=== PATIENT | female | born 1990 | race Two or more races ===

== ENCOUNTER 2024-01-31 08:50 | Outpatient (REF) | payer MEDICAID, SELFPAY ==
[2024-01-31 11:35] LABS: MANUAL DIFF FLAG NO
[2024-01-31 11:40] LABS: Basophils Absolute Auto 0.1 X10*3/uL (0.0-0.2); Basophils Percent Auto 0.9 % (0-2); Eosinophils Absolute Auto 0.2 X10*3/uL (0.0-0.4); Eosinophils Percent Auto 3.3 % (0-4); Estimated Average Glucose 128 mg/dL; Hematocrit 33.3 % (37.0-47.0); Hemoglobin 10.1 g/dl (12.0-16.0); Hemoglobin A1c % 6.1 % (<6.0); Imm Gran Abs Auto 0.01 X10*3/uL (0.00-0.03); Imm Gran Pct Auto 0.2 % (0.0-0.4); Lymphocytes Absolute Auto 2.4 X10*3/uL (1.2-4.9); Lymphocytes Percent Auto 43.8 % (20-40); Mean Corpuscular HGB Conc 30.3 g/dl (31.0-35.0); Mean Corpuscular Hemoglobin 24.5 pg (27.0-33.0); Mean Corpuscular Volume 80.6 fL (80.0-98.0); Mean Platelet Volume 11.3 fL (9.4-12.3); Monocytes Absolute Auto 0.3 X10*3/uL (0.1-1.2); Neutrophils Absolute Auto 2.5 x10*3/uL (2.0-8.3); Neutrophils Percent Auto 45.8 % (45-73); Platelet Count 446 X10*3/uL (160-400); Red Blood Count 4.13 X10*6/uL (4.20-5.50); Red Cell Distribution Width 21.2 % (11.0-16.0); White Blood Count 5.5 X10*3/uL (4.8-10.8)
[2024-01-31 12:40] LABS: Alanine Aminotransferase 20 U/L (0-31); Albumin Level 4.2 g/dL (3.5-5.0); Alkaline Phosphatase 75 U/L (39-117); Anion Gap 15 (12-20); Aspartate Amino Transferase 21 U/L (5-31); Bilirubin Total 0.2 mg/dL (0.0-1.0); Blood Urea Nitrogen 19 mg/dL (9-16); Calcium 9.8 mg/dL (8.4-10.2); Carbon Dioxide 24 mmol/L (22-29); Chloride 105 mmol/L (96-108); Cholesterol 203 mg/dL (<200); Estimated Glomerular Filt Rate > 60; Ferritin 12 ng/mL (10-122); Glucose Random 96 mg/dL (60-115); HDL Cholesterol 72 mg/dL (>40); Iron 22 mcg/dL (30-160); LDL Cholesterol Calculated 123 mg/dL (<100); Percent Iron Saturation 6 % (15-50); Potassium 4.5 mmol/L (3.3-5.1); Sodium 139 mmol/L (135-145); TSH reflex Free T4 0.85 uIU/mL (0.32-4.0); Total Iron Binding Capacity 362 mcg/dL (228-428); Total Protein 7.7 g/dL (6.5-8.0); Triglycerides 40 mg/dL (<150); Unsaturated Iron Binding 340 ug/dL
[2024-02-01 03:55] LABS: HBS Num1 > 1000.00 mIU/mL (0-7.99); HBc Num1 0.11 S/CO (0.00-0.79); HIV AB/AG Nonreactive (Nonreactive); HIV Num 1 0.04 S/CO (0.00-0.99); Hepatitis B Core Antibody Nonreactive (Nonreactive); Hepatitis B Surface Antigen Negative (Negative); ~HepC Num1 0.06 S/CO (0.00-0.79); ~Hepatitis B Surface Antibody REACTIVE (Nonreactive); ~Hepatitis C Antibody Nonreactive (Nonreactive)
== END 2024-01-31 08:51 | disposition home or self-care (01) ==
LOC: HO.HHCL 08:50
PROVIDERS: Visit Provider Nurse Practitioner
DX: E66.09 Other obesity due to excess calories (principal); Z86.2 Personal history of diseases of the blood and blood-forming organs and certain disorders involving the immune mechanism; Z11.3 Encounter for screening for infections with a predominantly sexual mode of transmission; Z68.32 Body mass index [BMI] 32.0-32.9, adult
CPT/HCPCS: 36415; 80053; 80061; 82728; 83036; 83540; 84443; 85025; 86704; 86706; 86803; 87340; 87389

== ENCOUNTER 2024-05-26 16:20 | Outpatient (REF) | payer MEDICAID, SELFPAY ==
--- NOTE | ~2024-05-26 | US_ITS ---
EXAMINATION: US PELVIS CLINICAL INFORMATION: Abnormal uterine bleeding, last menstrual period last month. COMPARISON: None available. TECHNIQUE: Ultrasound of the pelvis is performed using both transabdominal and transvaginal transducers along with Doppler. Transvaginal imaging is performed due to inadequate visualization transabdominally. FINDINGS: The uterus is anteverted, retroflexed and measures 13.0 x 5.5 x 5.4 cm. 1.1 x 0.6 x 1.3 cm posterior uterine mass is characteristic of a fibroid. Small amount of free fluid. Left ovary is unremarkable and measures 2.3 x 1.2 x 1.4 cm, volume 2.0 mL. Right ovary measures 3.9 x 2.4 x 2.5 cm, volume 12.2 mL. 2.3 x 1.3 x 1.5 cm right ovarian cyst has benign features and is likely physiologic. There is no specific indication for additional imaging at this time. Endometrial thickness is 11-13 mm. US/US pelvic and transvaginal IMPRESSION: 1. A 1.3 cm posterior uterine mass is characteristic of a fibroid. 2. Small amount of free fluid. 3. A 2.3 cm right ovarian cyst has benign features and is likely physiologic. There is no specific indication for additional imaging at this time. 4. Endometrial thickness is 11-13 mm. Electronically signed by: Rosangela Alonso MD 06/03/2024 03:47 PM EDT
== END 2024-05-26 16:21 | disposition home or self-care (01) ==
LOC: HO.US 16:20
PROVIDERS: PCP Nurse Practitioner; Visit Provider Nurse Practitioner
DX: N92.0 Excessive and frequent menstruation with regular cycle (principal)
CPT/HCPCS: 76830; 76856

== ENCOUNTER 2024-08-31 16:07 | Outpatient (REF) | payer MEDICAID, SELFPAY ==
[2024-08-31 17:41] LABS: MANUAL DIFF FLAG NO
[2024-08-31 17:55] LABS: Basophils Percent Auto 0.6 % (0-2); Eosinophils Absolute Auto 0.2 X10*3/uL (0.0-0.4); Eosinophils Percent Auto 3.7 % (0-4); Hematocrit 36.5 % (37.0-47.0); Hemoglobin 11.3 g/dl (12.0-16.0); Imm Gran Abs Auto 0.01 X10*3/uL (0.00-0.03); Imm Gran Pct Auto 0.2 % (0.0-0.4); Lymphocytes Absolute Auto 3.1 X10*3/uL (1.2-4.9); Mean Corpuscular Volume 80.8 fL (80.0-98.0); Mean Platelet Volume 11.8 fL (9.4-12.3); Monocytes Absolute Auto 0.3 X10*3/uL (0.1-1.2); Monocytes Percent Auto 5.2 % (2-11); Neutrophils Absolute Auto 2.5 x10*3/uL (2.0-8.3); Neutrophils Percent Auto 40.3 % (45-73); Platelet Count 420 X10*3/uL (160-400); Red Blood Count 4.52 X10*6/uL (4.20-5.50); Red Cell Distribution Width 19.9 % (11.0-16.0); White Blood Count 6.2 X10*3/uL (4.8-10.8)
[2024-08-31 18:25] LABS: Iron 95 mcg/dL (30-160); Percent Iron Saturation 24 % (15-50); Total Iron Binding Capacity 393 mcg/dL (228-428); Unsaturated Iron Binding 298 ug/dL
== END 2024-08-31 16:08 | disposition home or self-care (01) ==
LOC: HO.HHCL 16:07
PROVIDERS: Visit Provider Nurse Practitioner
DX: D50.9 Iron deficiency anemia, unspecified (principal)
CPT/HCPCS: 36415; 83540; 85025

== ENCOUNTER 2025-07-16 09:13 | Outpatient (REF) | payer MEDICAID, SELFPAY ==
--- OUTSIDE RECORDS SUMMARY | 2025-07-16 10:07 | XMS_ITS | Encounter Summary ---
Author Organization [employer] Address [address] [place] [address] Care Team Providers Care Interlocking Machine Operator Name Role Phone Emma Posada NP Primary Care Provider [phone] Reason for Visit * Reason Onset Date Comments Med Refill 10/20/2024 Encounter Details Date Type Department Care Team (Late st Contact Info) Description 10/20/2024 Telephone [facility] MEDICINE [address] [place] [address] Emma Posada NP [address] [place], [place] [phone] Med Refill Social History Tobacco Use Types Packs/Day Years Used Date Smoking Tobacco: Never Smokeless Tobacco: Never Alcohol Use Standard Drinks/Week Comments Never 0 (1 standard drink = 0.6 oz pur e alcohol) Alcohol Answer Date Recorded How often do you have a drink containing alcohol ? 0 08/31/2024 How many drinks containing a lcohol do you have on a typical day when you are drinking? 0 08/31/2024 How often do you have six or more drinks on one occasion? 0 08/31/2024 Depression Answer Date Recorded Patient Health Questionnaire-9 Score 0 01/29/2024 Patient Health Questionnaire-9 Score 0 01/29/2024 Last PHQ-9: Questionnaire Data Not on file 0 01/29/2024 Housing Stability Answer Date Recorded What is your housing situation today? I have mamta elias 01/22/[address] you li ve. Do you have problems with any of the following? None of the above 01/22/2024 Food Insecurity Answer Date Recorded Within the past 12 months, y ou worried that your food would run out before you got money to buy more: Never True 01/22/2024 Within the past 12 months,th e food you bought just didn't last and you didn't have enough money to get more: Never True Transportation Answer Date Recorded In the past 12 months, has l ack of transportation kept you from medical appts, meetings, work or from getting things needed for daily living? No 01/22/2024 Utilities Answer Date Recorded In the past 12 months, has t he electric, gas, oil or water company threatened to shut off services in your home? I am not sure 01/29/2024 Depression Answer Date Recorded Patient Health Questionnaire-2 Score 0 08/31/2024 Comments Unknown Sex and Gender Information Value Date Recorded Sex Assigned at Female 05/21/2023 11:06 AM EDT Legal Sex Female 11:05 AM EDT Gender Identity Female 05/21/2023 11:06 AM EDT Sexual Orientation Don't know 05/21/2023 11 :06 AM EDT documented as of this encounter Miscellaneous Notes * Telephone Encounter - Ping Willis LPN - 10/20/2024 10:46 AM EST Please review request as Patient has [facility] * Telephone Encounter - Mary Dennis - 10/20/2024 10:41 AM EST TC from pt requesting medication refill. Medications needing refill : Semaglutide-Weight Management 0.25 MG/0.5ML solution auto-injector To be sent to: [facility] documented in this encounter Plan of Treatment Upcoming Encounters Date Type Department Care Team (Late st Contact Info) Description 08/18/2025 10:45 AM EST Office Visit [facility] [address] [place] [address] Emma Posada NP [address] [place] [address] 11/11/2025 2:30 PM EST Office Visit [facility] OPTOM[facility] [address] [place] [address] Srea Graff OD [address] [place] [address] documented as of this encounter Visit Diagnoses Not on filedocumented in this encounter Additional Health Concerns Assessment Noted Time PHQ-9 Depression Total Score: 0 01/29/20 11:08 AM EDT documented as of this encounter Care Teams Interlocking Machine Operator Relationship Specialty Start Date End Date Emma Posada NP [address] [place] [id number] PCP - General Family Medicine 01/29/24 documented as of this encounter
--- OUTSIDE RECORDS SUMMARY | 2025-07-16 10:07 | XMS_ITS | Encounter Summary ---
Author Organization [employer] Address [address] [place] [address] Care Team Providers Care Program Director Scouting Name Role Phone Emma Posada NP Primary Care Provider Encounter Details Date Type Department Care Team (Late st Contact Info) Description 09/15/2024 Telephone [facility] MEDICINE [address] [place] [address] Emma Posada NP [address] [place] [address] Social History Tobacco Use Types Packs/Day Years [...] your housing situation today? I have mamta griffin 01/22/[address] you li [...] AM EDT documented as of this encounter Plan of Treatment Upcoming Encounters Date Type Department Care Team (Late st Contact Info) Description 08/18/2025 10:45 AM EST Office Visit [facility] MEDICINE [address] [place] [address] Emma Posada NP [address] [place] [address] 11/11/2025 2:30 PM EST Office Visit [facility] OPTOMETRY [address] [place] [address] TarSera mckinnon, OD [address] [place] [address] documented as of this encounter Visit Diagnoses Not on filedocumented in this encounter Additional Health Concerns Assessment Noted Time PHQ-9 Depression Total Score: 0 01/29/20 11:08 AM EDT documented as of this encounter Care Teams Program Director Scouting Relationship Specialty Start Date End Date Emma Posada NP [address] [place] [address] PCP - General Family Medicine 01/29/24 documented as of this encounter
--- OUTSIDE RECORDS SUMMARY | 2025-07-16 10:07 | XMS_ITS | Encounter Summary ---
Author Organization [employer] Address [address] [place] [address] Care Team Providers Care Retail Coverage Merchandiser Name Role Phone Emma Posada NP Primary Care Provider [phone] Reason for Visit * Reason Comments Med Change Request Encounter Details Date Type Department Care Team (Late st Contact Info) Description 05/29/2024 Refill [facility] MED & PEDS [address] [place] [address] Emma Posada NP [address] [place], [place] [phone] Iron deficiency anemia, unspecified iron deficiency anemia type Social History Tobacco Use Types Packs/Day Years Used Date Smoking Tobacco: Never Smokeless Tobacco: Never Alcohol Use Standard Drinks/Week Comments Never 0 (1 standard drink = 0.6 oz pur e alcohol) Depression Answer Date Recorded Patient Health Questionnaire-9 [...] Date Recorded Patient Health Questionnaire-2 Score 0 01/29/2024 Comments Unknown Sex and Gender Information Value [...] Description 08/18/2025 10:45 AM EST Office Visit [facility] MEDICINE [address] [place] [address] Emma Posada NP [address] [place] [address] 11/11/2025 2:30 PM EST Office Visit [facility] OPTOMETRY [address] [place] [address] Tarka, Sera, OD [address] [place] [address] documented as of this encounter Visit Diagnoses Diagnosis Iron deficiency anemia, unspecified iron deficiency anemia type documented in this encounter Additional Health Concerns Assessment Noted Time PHQ-9 Depression Total Score: 0 01/29/20 11:08 AM EDT documented as of this encounter Care Teams Retail Coverage Merchandiser Relationship Specialty Start Date End Date Emma Posada NP [address] [place] [address] PCP - General Family Medicine 01/29/24 documented as of this encounter
--- OUTSIDE RECORDS SUMMARY | 2025-07-16 10:07 | XMS_ITS | Encounter Summary ---
Author Organization [employer] Address [address] [place] [address] Care Team Providers Care Personnel Security Specialist Name Role Phone Emma Posada NP Primary Care Provider [phone] Reason for Visit * Reason Comments Med Change Request Encounter Details Date Type Department Care Team (Late st Contact Info) Description 05/29/2024 Refill [facility] MED & PEDS [address] [place] [address] Emma Posada NP [address] [place], [place] [phone] Iron deficiency anemia, unspecified iron deficiency anemia [...] Description 08/18/2025 10:45 AM EST Office Visit [facility] MEDICINE [address] [place] [address] Emma Posada NP [address] [place] [address] 11/11/2025 2:30 PM EST Office Visit [facility] OPTOMETRY [address] [place] [address] Tarka, Sera, OD [address] [place] [address] documented as of this encounter Visit Diagnoses Diagnosis Iron deficiency anemia, unspecified iron deficiency anemia type documented in this encounter Additional Health Concerns Assessment Noted Time PHQ-9 Depression Total Score: 0 01/29/20 11:08 AM EDT documented as of this encounter Care Teams Personnel Security Specialist Relationship Specialty Start Date End Date Emma Posada NP [address] [place] [address] PCP - General Family Medicine 01/29/24 documented as of this encounter
--- OUTSIDE RECORDS SUMMARY | 2025-07-16 10:07 | XMS_ITS ---
Author Name [facility] Organization Unknown Encounters Encounter Type Encounter Reason Primary Diagnosis Location Date Ambulatory [facility] le ft lower [facility] Care Team Organization Name Specialty Phone Email Start Date End Da te [facility] [place] 03/2025 [facility] 08/01/2022 05/18/2024 [facility] NO PCP Primary Care 04/17/2022 04/17/2022 [facility] PCP,No Primary Care 04/17/2022
--- OUTSIDE RECORDS SUMMARY | 2025-07-16 10:07 | XMS_ITS | Encounter Summary ---
Author Organization [employer] Address [address] [place] [address] Care Team Providers Care Woven Blind Loom Tender Name Role Phone Emma Posada NP Primary Care Provider [phone] Reason for Visit * Reason Comments Med Refill Encounter Details Date Type Department Care Team (Late st Contact Info) Description 10/20/2024 Refill [facility] MEDICINE [address] [place], [place] [phone] Emma Posada NP [address] [place], [place] [phone] Obesity (BMI 30-39.9) Social History Tobacco Use Types Packs/Day Years [...] Description 08/18/2025 10:45 AM EST Office Visit [facility] MEDICINE [address] [place] [address] Emma Posada NP [address] [place] [address] 11/11/2025 2:30 PM EST Office Visit [facility] OPTOMETRY [address] [place] [address] Tarka, Sera, OD [address] [place] [address] documented as of this encounter Visit Diagnoses Diagnosis Obesity (BMI 30-39.9) documented in this encounter Additional Health Concerns Assessment Noted Time PHQ-9 Depression Total Score: 0 01/29/20 11:08 AM EDT documented as of this encounter Care Teams Woven Blind Loom Tender Relationship Specialty Start Date End Date Emma Posada NP [address] [place] [address] PCP - General Family Medicine 01/29/24 documented as of this encounter
--- OUTSIDE RECORDS SUMMARY | 2025-07-16 10:08 | XMS_ITS | Clinical Summary ---
Author Organization [employer] Address [address] [facility] 7t [place] [address] Care Team Providers Care Industrial Waste Treatment Technician Name Role Phone Emma Posada NP Primary Care Provider [phone] Allergies No known active allergies Medications Blood Pressure Monitor kitIndications :Routine health maintenance 1 kit Once per day. Call the clinic with readings >130/80 1 kit 024 Active ibuprofen 800 MG tabletIndicati ons:Menorrhagi a with regular cycle Take 1 tablet TID with food during menstrual cycle 90 tablet 024 Active Tirzepatide-We ight Management (Zepbound) 5 MG/0.5ML solution auto-injectorI ndications:Cla ss 1 obesity due to excess calories without serious comorbidity with body mass index (BMI) of 32.0 to 32.9 in adult INJECT ONE PEN (=5MG) SUBCUTANEOUSLY ONCE A WEEK DIRECTED 2 mL 025 Active Ascorbic Acid (vitamin C) 250 MG tabletIndicati ons:Iron deficiency anemia, unspecified iron deficiency anemia type TAKE 1 TABLET BY MOUTH EVERY OTHER DAY WITH IRON 45 tablet 1 025 Active ferrous gluconate (Fergon) 324 (38 Fe) MG tabletIndicati ons:Iron deficiency anemia, unspecified iron deficiency anemia type TAKE 1 TABLET BY MOUTH EVERY OTHER DAY WITH vitamin c 45 tablet 1 025 Active ferrous gluconate (Fergon) 324 (38 Fe) MG tabletIndicati ons:Iron deficiency anemia, unspecified iron deficiency anemia type TAKE 1 TABLET BY MOUTH EVERY OTHER DAY WITH VITAMIN C 45 tablet 2 024 2024 Discontinued Ascorbic Acid (vitamin C) 250 MG tabletIndicati ons:Iron deficiency anemia, unspecified iron deficiency anemia type TAKE 1 TABLET BY MOUTH EVERY OTHER DAY WITH IRON 45 tablet 2 024 2024 Discontinued Active Problems Problem Noted Date Diagnosed Date Obesity (BMI 30-39.9) 08/31/2024 Menorrhagia with regular cycle 05/19/2024 Assessment & Plan (05/19/2024 2:21 PM EDT): -normal thyroid function (0.85 on 01/2024) -orders placed for transvaginal and pelvic US to evaluate for structural abnormalities -trial ibuprofen 800 mg TID during menses to help slow down bleeding -patient decline STI testing today -will discuss obtaining PT, PTT levels and testing for von Willebrand at next visit -will discuss possible use of IUD for fci management at next visit -follow-up after US completed Iron deficiency anemia 05/19/2024 Assessment & Plan (05/19/2024 1:48 PM EDT): -start ferrous gluconate every other day with vitamin C -advised to increase dietary sources of iron -will work up menorrhea as the potential cause Prediabetes 05/19/2024 Assessment & Plan (05/19/2024 2:21 PM EDT): -A1c 6.1% -reviewed dietary and physical activity requirements -declined referral to see superintendent horticulture -consider initiation of GLP-1 to assist with weight loss at next visit Class 1 obesity due to exces s calories without serious comorbidity with body mass index (BMI) of 32.0 to 32.9 in adult 01/29/2024 Assessment & Plan (01/29/2024 12:04 PM EDT): -Healthy diet and exercise teaching completed: Eat a variety of fruit and vegetables, whole grains such as whole-wheat flour, bulgur (cracked wheat), oatmeal, and brown rice. Intake protein from beans, nuts, fish, and lean meats. Eat low-fat or fat- free dairy products. Limit highly processed foods such as hot dogs, sandwich meat, etc. Engage in minimum of 150 min of moderate intensity exercise weekly -labs ordered to evaluate for secondary causes of obesity Routine screening for STI (sexually transmitted infection) 01/29/2024 Assessment & Plan (01/29/2024 12:07 PM EDT): -patient agreeable to screening for hepatitis B&C and HIV Routine health maintenance 01/29/2024 Assessment & Plan (01/29/2024 12:18 PM EDT): -moderate cardiovascular risk based on BMI reading -mildly elevated BP. Will continue to monitor -mental health screenings negative -healthy social behaviors encouraged -anticipatory guidance reviewed: diet, exercise -Mammogram: not due till age 40. -Cervical cancer screening: will attempt to obtain last pap results from [facility] [place] -Colonoscopy: not due till 40 -Dexa Scan: not due till age 65. No reported risk history -Hepatitis C Screen: ordered today -HIV Screen: ordered today -Immunizations: discuss at next visit -follow-up 6 months or sooner as needed Resolved Problems Problem Noted Date Diagnosed Date Resolved Date Hx of iron deficiency anemia 01/29/2024 05/19/2024 Assessment & Plan (01/29/2024 12:06 PM EDT): -patient reports history of anemia -CBC and iron panel ordered -will treat accordingly pending lab results Encounters Date Type Department Care Team Description 07/09/2025 3:15 PM EDT Office Visit [facility] MEDICINE [address] [place] [phone] Emma Posada NP Class 1 obesity due to excess calories without serious comorbidity with body mass index (BMI) of 32.0 to 32.9 in adult (Primary Dx); Dietary counseling; Exercise counseling; Iron deficiency anemia, unspecified iron deficiency anemia type; Prediabetes; History of uterine fibroid; Routine health maintenance; Encounter for immunization 07/09/2025 Travel 07/08/2025 Telephone [facility] MEDICINE [address] [place] [phone] Hammad Abbasi [place] CHART PREP 06/15/2025 Refill [facility] MEDICINE [address] [place] [phone] Emma oPsada NP Iron deficiency anemia, unspecified iron deficiency anemia type 06/04/2025 Refill [facility] MEDICINE [address] [place] [phone] Emma Posada NP Class 1 obesity due to excess calories without serious comorbidity with body mass index (BMI) of 32.0 to 32.9 in adult from Last 3 Months Immunizations Immunization Administration Dates Next Due Influenza, seasonal, injectable, preservative fr ee 07/09/2025 Tdap 08/31/2024 Family History Medical History Relation Name Comments Hyperlipidemia Mother Hypertension Mother pacemaker Mother Breast cancer Mother's Sister Relation Name Status Comments Mother Mother's Sister Social History Tobacco Use Types Packs/Day Years Used Date Smoking Tobacco: Never Smokeless Tobacco: Never Tobacco Cessation:Counseling Given: Not Answered Alcohol Use Standard Drinks/Week Comments Never 0 [...] housing situation today? I have mamta griffin 07/09/[address] you li ve. Do you have problems with any of the following? None of the above 07/09/2025 Food Insecurity Answer Date Recorded Within the past 12 months, y ou worried that your food would run out before you got money to buy more: Never True 07/09/2025 Within the past 12 months,th e food you bought just didn't last and you didn't have enough money to get more: Never True 06/2025 Transportation Answer Date Recorded In the past 12 months, has l ack of transportation kept you from medical appts, meetings, work or from getting things needed for daily living? No 07/09/2025 Utilities Answer Date Recorded In the past 12 months, has t he electric, gas, oil or water company threatened to shut off services in your home? No 07/09/2025 Depression Answer Date Recorded Patient Health Questionnaire-2 Score 0 08/31/2024 Internet Access Answer Date Recorded Internet Access Q1 Yes 07/09/2025 Internet Access Q2 Not on file 07/09/2025 Comments Unknown Sex and Gender Information Value Date Recorded Sex Assigned at Female 05/21/2023 11:06 AM EDT Legal Sex Female 11:05 AM EDT Gender Identity Female 05/21/2023 11:06 AM EDT Sexual Orientation Don't know 05/21/2023 11 :06 AM EDT Last Filed Vital Signs Vital Sign Reading Time Taken Comments Blood Pressure 110/82 07/09/2025 3:30 PM EDT Pulse 68 07/09/2025 3:30 PM EDT Temperature 37.2 C (99 F) 07/09/2025 3:30 PM EDT Respiratory Rate 17 07/09/2025 3:30 PM EDT Oxygen Saturation 99% 07/09/2025 3:30 PM EDT Inhaled Oxygen Concentration - - Weight 92.4 kg (203 lb 12.8 oz) 07/09/2025 3:30 PM EDT Height 170.2 cm (5' 7 ) 07/09/2025 3:30 PM EDT Body Mass Index 31.92 07/09/2025 3:30 PM EDT Plan of Treatment Upcoming Encounters Date Type Department Care Team (Late st Contact Info) Description 08/18/2025 10:45 AM EST Office Visit [facility] MEDICINE [address] [place] [address] Emma Posada NP [address] [place] [address] 11/11/2025 2:30 PM EST Office Visit [facility] OPTOMETRY [address] [place] [address] Sera Graff, OD [address] [place] [address] Health Maintenance Due Date Last Done Comments Family Planning (PISQ) 01/09/2003 HPV Vaccines (1 - 3-dose series) 01/09/2003 Hepatitis B Vaccines (1 of 3 - 19+ 3-dose series) 01/09/2007 Pap Smear 01/09/2009 Cervical Cancer Screening 01/09/2018 HPV/Cotest 01/09/2018 Diabetes: Hemoglobin A1C 01/30/2025 01/31/2024 COVID-19 Vaccine (1 - 2023-2 5 season) 2025 Alcohol/Substance Use Screening 08/31/2025 08/31/2024 Depression Screening 08/31/2025 08/31/2024, 01/29/2024 Tobacco Screening 08/31/2025 08/31/2024 Disability Screening 07/09/2026 07/09/2025 SDOH Screening 07/09/2026 07/09/2025 Lipid Panel 01/30/2029 01/31/2024 DTaP/Tdap/Td Vaccines (2 - T d or Tdap) 08/31/2034 08/31/2024 Zoster Vaccines (1 of 2) 01/09/2038 RSV Patients and Patients Aged 60 years or older (1 - 1-dose 75+ series) 01/09/2063 HIV Screening Completed 01/31/2024 Hepatitis C Screening Completed 01/31/2024 Influenza Vaccine Completed 07/09/2025 HIB Vaccines Aged Out No longer eligi ble based on patient's age to complete this topic Hepatitis A Vaccines Aged Out No long er eligible based on patient's age to complete this topic IPV Vaccines Aged Out No longer eligi ble based on patient's age to complete this topic Meningococcal B Vaccine Aged Out No l onger eligible based on patient's age to complete this topic Meningococcal Vaccine Aged Out No lauren leisa eligible based on patient's age to complete this topic Pneumococcal Vaccine: Pediatrics (0 to 5 Years) and At-Risk Patients (6 to 49) Years Aged Out No longer eligible b ased on patient's age to complete this topic RSV under 20 months Aged Out No longe r eligible based on patient's age to complete this topic Rotavirus Vaccines Aged Out No longer eligible based on patient's age to complete this topic Procedures Procedure Name Priority Date/Time Associated Diagnosis Comments HEPATITIS C AB W/REFL TO HCV RNA, QN, PCR Routine 01/31/2024 8:57 AM EDT Routine screening for STI (sexually transmitted infection) HIV 1/2 ANTIGEN/ANTIBODY, FOURTH GENERATION W/RFL Routine 01/31/2024 8:57 AM EDT Routine screening for STI (sexually transmitted infection) HEMOGLOBIN A1C Routine 01/31/2024 8:57 AM EDT Class 1 obesity due to excess calories without serious comorbidity with body mass index (BMI) of 32.0 to 32.9 in adult LIPID PANEL, STANDARD Routine 01/31/2024 8:57 AM EDT Class 1 obesity due to excess calories without serious comorbidity with body mass index (BMI) of 32.0 to 32.9 in adult from Last 3 Months or Most Recently Relevant to Health Maintenance Results * Hepatitis C Antibody with Reflex to HCV, RNA, Quantitative, Real-Time PCR (01/31/2024 8:57 AM EDT) Hepatitis C Antibody Nonreactive Nonreactive [facility] Comment:Antibodies to HCV no t detected; does not exclude early acuteHCV infection. Blood Venous blood specimen / Unknown 01/31/2024 8:57 AM EDT 01/31/2024 11:28 AM EDT Emma Posada CERAMIC SAW TENDER LAB BLOOD ORDERABLES Final Resu lt [facility] [address] [place] [phone] * HIV-1/2 Antigen and Antibodies, Fourth Generation, with Reflexes (01/31/2024 8:57 AM EDT) HIV AB/AG Nonreactive Nonreactive [facility] Comment:HIV-1 p24 Ag and/or HIV-1/HIV-2 Ab not detected.A test result that is nonreactive does not exclude thepossibility of exposure to or infection with HIV-1 and/orHIV-2. Nonreactive results in this assay for individualswith prior exposure to HIV-1 and/or HIV-2 may be due toantigen and antibody levels that are below the limit ofdetection of this assay.The Speek HIV Ag/Ab Combo assay result andsupplemental assay results should be interpreted inconjunction with the patient's clinical presentation,history and other laboratory results. If the results areinconsistent with clinical evidence, additional testing issuggested to confirm the result. Blood Venous blood specimen / Unknown 01/31/2024 8:57 AM EDT 01/31/2024 11:28 AM EDT [facility] Final Resu lt Performing Organization Address [facility] Co de Phone Number [facility] [address] [place] [address] [phone] * (ABNORMAL) Hemoglobin A1c (01/31/2024 8:57 AM EDT) Hemoglobin A1c 6.1(H) <6.0 % [facility] Comment:Hemoglobin A1C Refer ence Range Adults: 4.8 - 6.0 % Non diabetic: < 6.0 % Goal: < 7.0 %Additional Action Suggested: > 8.0 %Note: Hemoglobin A1c results are invalid for patients with abnormal amounts of HbF. Blood transfusions may impact the HbA1c concentration in the patient sample. Estimated Average Glucose 128 mg/dL [facility] Comment:eAG = Estimated ave rage glucose which is %A1C expressed asaverage glucose, using the formula of the S6V-PbibaezFraredn Glucose study (ADAG), Diabetes Care, Vol.31,#8,2007 Blood Venous blood specimen / Unknown 01/31/2024 8:57 AM EDT 01/31/2024 11:26 AM EDT [facility] LAB BLOOD ORDERABLES Final Resu lt Performing Organization Address [facility] Co de Phone Number [facility] [address] [place] [address] [phone] * (ABNORMAL) Lipid Panel, Standard (01/31/2024 8:57 AM EDT) Triglycerides 40 <150 mg/dL [facility] Comment:Desirable Triglyceri de: less than 150 mg/dLBorderline High Triglyceride 150-199 mg/dLHigh Triglyceride: 200-499 mg/dLVery High Triglyceride: greater than or equal to 5OO mg/dL Cholesterol 203(H) <200 mg/dL [facility] Comment:Desirable Cholestero l: less than 200 mg/dLBorderline High Cholesterol: 200-239 mg/dLHigh Cholesterol: greater than 239 mg/dL LDL Cholesterol Calculated 123(H) <100 mg/dL [facility] Comment:Desirable LDL: less than 100 mg/dLNear Optimal/Above Optimal LDL: 110- 129 mg/dLBorderline High LDL: 130-159 mg/dLHigh LDL: 160-189 mg/dLVery High LDL: greater than or equal to 190 mg/dL HDL Cholesterol 72 >40 mg/dL [facility] Comment:Desirable HDL: great er than 40 mg/dL Note: This HDL assay may give artificially low results in patients with liver disease. Blood Venous blood specimen / Unknown 01/31/2024 8:57 AM EDT 01/31/2024 11:28 AM EDT Emma Posada NP LAB BLOOD ORDERABLES Final Resu lt [facility] [address] [place] [phone] from Last 3 Months or Most Recently Relevant to Health Maintenance Insurance [facility] C3 Care Teams Industrial Waste Treatment Technician Relationship Specialty Start Date End Date Emma Posada NP [address] [place] [address] PCP - General Family Medicine 01/29/24
--- OUTSIDE RECORDS SUMMARY | 2025-07-16 10:08 | XMS_ITS | Encounter Summary ---
Author Organization [employer] Address [address] [place] [address] [address] [place] [address] Care Team Providers Care Retail Furniture Sales Name Role Phone Emma Posada GOLF BALL MARKER Primary Care Provider [phone] Reason for Visit * Reason Onset Date Comments new Patient 05/21/2023 Encounter Details Date Type Department Care Team (Late st Contact Info) Description 05/21/2023 Telephone [facility] MEDICINE [address] [place] [phone] Marcelo Long MD [address] [place] [address] new Patient Social History Tobacco Use Types Packs/Day Years Used Date Smoking Tobacco: Never Assessed Comments Unknown Sex and Gender Information Value Date Recorded Sex Assigned at Female 05/21/2023 11:06 AM EDT Legal Sex Female 11:05 AM EDT Gender Identity Female 05/21/2023 11:06 AM EDT Sexual Orientation Don't know 05/21/2023 11 :06 AM EDT documented as of this encounter Miscellaneous Notes * Telephone Encounter - Karlie Stahl - 05/21/2023 11:11 AM EDT Pt has been transfer over to wait list for GOLF BALL MARKER. EFFECTIVE SINCE 05/21/2023 documented in this encounter Plan of Treatment Upcoming Encounters Date Type Department Care Team (Late st Contact Info) Description 08/18/2025 10:45 AM EST Office Visit [facility] MEDICINE [address] [place] [phone] Emma Posada NP [address] [place] [address] 11/11/2025 2:30 PM EST Office Visit [facility] OPTOMETRY [address] [place], [place] [phone] Sera Graff, OD [address] [place], [place] [phone] documented as of this encounter Visit Diagnoses Not on filedocumented in this encounter Care Teams Retail Furniture Sales Relationship Specialty Start Date End Date Emma Posada NP [address] [place] [address] [phone] PCP - General Family Medicine 01/29/24 documented as of this encounter
--- OUTSIDE RECORDS SUMMARY | 2025-07-16 10:08 | XMS_ITS | Encounter Summary ---
Author Organization [employer] Address [address] [facility] [address] [place] [address] Care Team Providers Care Engraver Hand Hard Metals Name Role Phone Emma Posada NP Primary Care Provider [phone] Reason for Visit * Reason Comments Med Refill Encounter Details Date Type Department Care Team (Late st Contact Info) Description 03/30/[address] [facility] MEDICINE [address] [place], [place] [phone] Emma Posada NP [address] [place], [place] [phone] Class 1 obesity due to excess calories without serious comorbidity with body mass index (BMI) of 32.0 to 32.9 in adult Social History Tobacco Use Types Packs/Day Years [...] Description 08/18/2025 10:45 AM EST Office Visit [facility] MEDICINE [address] [place] [address] Emma Posada NP [address] [place] [address] 11/11/2025 2:30 PM EST Office Visit [facility] OPTOMETRY [address] [place] [address] TarkaSera, OD [address] [place] [address] documented as of this encounter Visit Diagnoses Diagnosis Class 1 obesity due to excess calories without serious comorbidity with body mass index (BMI) of 32.0 to 32.9 in adult documented in this encounter Additional Health Concerns Assessment Noted Time PHQ-9 Depression Total Score: 0 01/29/20 24 11:08 AM EDT documented as of this encounter Care Teams Engraver Hand Hard Metals Relationship Specialty Start Date End Date Emma Posada NP [address] [place] [address] PCP - General Family Medicine 01/29/24 documented as of this encounter
[2025-07-16 11:26] LABS: MANUAL DIFF FLAG NO
[2025-07-16 11:39] LABS: Hematocrit 36.4 % (37.0-47.0); Hemoglobin 11.3 g/dl (12.0-16.0); Imm Gran Abs Auto 0.01 X10*3/uL (0.00-0.03); Imm Gran Pct Auto 0.2 % (0.0-0.4); Lymphocytes Absolute Auto 2.2 X10*3/uL (1.2-4.9); Mean Corpuscular HGB Conc 31.0 g/dl (31.0-35.0); Mean Corpuscular Hemoglobin 25.5 pg (27.0-33.0); Mean Corpuscular Volume 82.2 fL (80.0-98.0); NRBC Abs Auto 0.000 X10*3/uL (0.0-0.012); NRBC Pct Auto 0.0 /100WBC (0.0-0.2); Platelet Count 348 X10*3/uL (160-400); Red Blood Count 4.43 X10*6/uL (4.20-5.50); White Blood Count 5.6 X10*3/uL (4.8-10.8)
[2025-07-16 14:01] LABS: Anion Gap 10 (12-20); Blood Urea Nitrogen 16 mg/dL (9-16); Calcium 9.3 mg/dL (8.4-10.2); Carbon Dioxide 28 mmol/L (22-29); Chloride 105 mmol/L (96-108); Cholesterol 220 mg/dL (<200); Estimated Glomerular Filt Rate > 60; HDL Cholesterol 64 mg/dL (>40); Iron 78 mcg/dL (30-160); Percent Iron Saturation 23 % (15-50); Potassium 4.1 mmol/L (3.3-5.1); Sodium 139 mmol/L (135-145); Total Iron Binding Capacity 337 mcg/dL (228-428); Triglycerides 48 mg/dL (<150); Unsaturated Iron Binding 259 ug/dL
[2025-07-16 14:25] LABS: Ferritin 29 ng/mL (10-122)
== END 2025-07-16 09:14 | disposition home or self-care (01) ==
LOC: HO.HHCL 09:13
PROVIDERS: PCP Nurse Practitioner; Visit Provider Nurse Practitioner
DX: E66.811 Obesity, class 1 (principal); R73.03 Prediabetes; D50.9 Iron deficiency anemia, unspecified; Z68.32 Body mass index [BMI] 32.0-32.9, adult
CPT/HCPCS: 36415; 80048; 80061; 82728; 83036; 83540; 85025

== ENCOUNTER 2025-09-10 13:27 | Outpatient (REF) | payer MEDICAID, SELFPAY ==
--- NOTE | ~2025-09-10 | US_ITS ---
EXAMINATION: US PELVIS CLINICAL INFORMATION: Uterine fibroids. LMP: No apparent 2024. COMPARISON: January 25, 2024. TECHNIQUE: Ultrasound of the pelvis is performed using both transabdominal and transvaginal transducers along with Doppler. Transvaginal imaging is performed due to inadequate visualization transabdominally. FINDINGS: Uterus: The uterus is anteverted in retroversion flexion and measures 15 x 6 x 7 cm. Volume: 295 cc. The double wall endometrial thickness is 12 mm. There is a 2.8 cm heterogeneous predominantly hypoechoic lesion in the anterior aspect of the body of the myometrium. The cervix is closed with the small nabothian cysts. Adnexa: The ovaries are identified with flow on color Doppler interrogation.. No solid or cystic lesion. No free fluid in the cul-de-sac. Right ovary measures 4 x 2 x 3 cm. Volume: 11 cc. Left ovary measures 3 x 2 x 3 cm. Volume: 4 cc. US/US pelvic and transvaginal IMPRESSION: 2.8 cm uterine fibroid. Slightly larger since prior exam. No ovarian torsion. No gross solid or cystic lesion, ovaries. Electronically signed by: Sanchez Quintana MD 09/10/2025 02:52 PM EST
--- OUTSIDE RECORDS SUMMARY | 2025-09-10 18:57 | XMS_ITS | Encounter Summary ---
Author Organization [employer] Address [address] [facility] [place] [address] Care Team Providers Care Knockout Machine Operator Name Role Phone Emma Posada NP Primary Care Provider [phone] Reason for Visit * Reason Comments Med Refill Encounter Details Date Type Department Care Team (Late st Contact Info) Description 10/20/2024 Refill [facility] MEDICINE [address] [place], [place] [phone] Emma Posada NP [address] [place], [place] [phone] Obesity (BMI 30-39.9) Social History Tobacco Use [...] Care Team (Late st Contact Info) Description 09/17/2025 11:30 AM EST Office Visit [facility] MEDICINE [address] [place] [address] Emma Posada NP [address] [place] [address] 11/05/2025 3:00 PM EST Nutrition [facility] DIABETES/NUTRITION [address] [place] [address] Michelle Hyde, RD [address] [place] [address] 11/11/2025 2:30 PM EST Office Visit [facility] OPTOMETRY [address] [place] [address] Tarka, Sera, OD [address] [place] [address] documented as of this encounter Visit Diagnoses Diagnosis Obesity (BMI 30-39.9) documented in this encounter Additional Health Concerns Assessment Noted Time PHQ-9 Depression Total Score: 0 01/29/20 11:08 AM EDT documented as of this encounter Care Teams Knockout Machine Operator Relationship Specialty Start Date End Date Emma Posada NP [address] [place] [address] PCP - General Family Medicine 01/29/24 documented as of this encounter
--- OUTSIDE RECORDS SUMMARY | 2025-09-10 18:57 | XMS_ITS | Encounter Summary ---
Author Organization [employer] Address [address] [place] [address] [address] [place] [address] Care Team Providers Care Bead Forming Machine Operator Name Role Phone Emma Posada TEAM LEADER Primary Care Provider [phone] Reason for Visit * Reason Onset Date Comments new Patient 05/21/2023 Encounter Details Date Type Department Care Team (Late st Contact Info) Description 05/21/2023 Telephone [facility] MEDICINE [address] [place] [phone] Marcelo Long MD [address] [place] [address] new Patient Social History Tobacco Use Types [...] been transfer over to wait list for TEAM LEADER. EFFECTIVE SINCE 05/21/2023 documented in this encounter Plan of Treatment Upcoming Encounters Date Type Department Care Team (Late st Contact Info) Description 09/17/2025 11:30 AM EST Office Visit [facility] MEDICINE [address] [place] [phone] Emma Posada NP [address] [place] [address] 11/05/2025 3:00 PM EST Nutrition [facility] DIABETES/NUTRITION [address] [place], [place] [phone] Michelle Hyde, JOSE [address] [place] [address] 11/11/2025 2:30 PM EST Office Visit [facility] OPTOMETRY [address] [place], [place] [phone] Sera Graff, OD [address] [place] [address] documented as of this encounter Visit Diagnoses Not on filedocumented in this encounter Care Teams Bead Forming Machine Operator Relationship Specialty Start Date End Date Emma Posada NP [address] [place] [address] PCP - General Family Medicine 01/29/24 documented as of this encounter
--- OUTSIDE RECORDS SUMMARY | 2025-09-10 18:57 | XMS_ITS | Clinical Summary ---
Author Organization [employer] Address [address] [facility] 7[address] [place] [address] Care Team Providers Care Motor Vehicle Inspector Name Role Phone Emma Posada NP Primary Care Provider [phone] Allergies No known active allergies Medications Blood Pressure Monitor kitIndications: Routine health maintenance 1 kit Once per day. Call the clinic with readings >130/80 1 kit 01/29/20 24 Active ibuprofen 800 MG tabletIndicatio ns:Menorrhagia with regular cycle Take 1 tablet TID with food during menstrual cycle 90 tablet 08/31/20 24 Active Ascorbic Acid (vitamin C) 250 MG tabletIndicatio ns:Iron deficiency anemia, unspecified iron deficiency anemia type TAKE 1 TABLET BY MOUTH EVERY OTHER DAY WITH IRON 45 tablet 1 06/17/20 25 Active ferrous gluconate (Fergon) 324 (38 Fe) MG tabletIndicatio ns:Iron deficiency anemia, unspecified iron deficiency anemia type TAKE 1 TABLET BY MOUTH EVERY OTHER DAY WITH vitamin c 45 tablet 1 06/17/20 25 Active phentermine 15 MG capsuleIndicati ons:Class 1 obesity due to excess calories without serious comorbidity with body mass index (BMI) of 32.0 to 32.9 in adult Take 1 capsule (15 mg) by mouth before breakfast. 30 capsule 5 12:10 PM EST 08/18/20 25 025 Active Tirzepatide-Jhon ght Management (Zepbound) 5 MG/0.5ML solution auto-injectorIn dications:Class 1 obesity due to excess calories without serious comorbidity with body mass index (BMI) of 32.0 to 32.9 in adult INJECT ONE PEN (=5MG) SUBCUTANEOUSLY ONCE A WEEK DIRECTED 2 mL 06/04/20 25 025 Discontin ued(Thera py completed ) Active Problems Problem Noted Date Diagnosed Date [...] -will discuss possible use of IUD for halfway management at next visit -follow-up after US completed Iron deficiency anemia 05/19/2024 Assessment & Plan (08/27/2025 1:04 AM EST): -secondary to heavy menses -continue iron supplementation -repeat labs ordered today -will discuss use of contraception to aid in menstrual flow suppression Orders: CBC auto differential; Future Iron And Total Iron Binding Capacity; Future Ferritin; Future Assessment & Plan (08/18/2025 12:05 PM EST): Assessment & Plan (05/19/2024 1:48 PM EDT): -start ferrous gluconate every other day with vitamin C -advised to increase dietary sources of iron -will work up menorrhea as the potential cause Prediabetes 05/19/2024 Assessment & Plan (08/27/2025 1:04 AM EST): Orders: Hemoglobin A1c; Future Basic Metabolic Panel; Future Assessment & Plan (08/18/2025 12:05 PM EST): Dietary Recommendations: Fruits, vegetables, whole grains, protein foods, and fat-free or low-fat dairy products are healthy choices. Eat different types of protein foods in your diet. This can include seafood, lean meats, poultry, beans, peas, lentils, nuts, seeds, soy products, and eggs. Limit foods and beverages higher in added sugars, saturated fat, and sodium. Exercise Recommendations: At least 150 minutes of moderate-intensity physical activity per week, or an equivalent combination of moderate- and vigorous-intensity activity -follow-up 6 mon Assessment & Plan (05/19/2024 2:21 PM EDT): -A1c 6.1% -reviewed dietary and physical activity requirements -declined referral to see physical therapy aides teacher -consider initiation of GLP-1 to assist with weight loss at next visit Class 1 obesity due to exces s calories without serious comorbidity with body mass index (BMI) of 32.0 to 32.9 in adult 01/29/2024 Assessment & Plan (08/27/2025 1:04 AM EST): -patient informed of changes to insurance requirements for weight loss medications -recommend re-engaging in routine physical activity and dietary changes Dietary Recommendations: Fruits, vegetables, whole grains, protein foods, and fat-free or low-fat dairy products are healthy choices. Eat different types of protein foods in your diet. This can include seafood, lean meats, poultry, beans, peas, lentils, nuts, seeds, soy products, and eggs. Limit foods and beverages higher in added sugars, saturated fat, and sodium. Exercise Recommendations: At least 150 minutes of moderate-intensity physical activity per week, or an equivalent combination of moderate- and vigorous-intensity activity -will trial phentermine per insurance requirements if no success with lifestyle modifications Orders: Hemoglobin A1c; Future Lipid Panel, Standard; Future Basic Metabolic Panel; Future Assessment & Plan (08/18/2025 12:05 PM EST): Orders: Referral to Nutrition Therapy; Future phentermine 15 MG capsule; Take 1 capsule (15 mg) by mouth before breakfast. Assessment & Plan (01/29/2024 12:04 PM EDT): [...] Routine health maintenance 01/29/2024 Assessment & Plan (08/27/2025 1:04 AM EST): Orders: Referral to Optometry; Future Assessment & Plan (01/29/2024 12:18 PM EDT): -moderate cardiovascular risk based on BMI reading -mildly elevated BP. Will continue to monitor -mental health screenings negative -healthy social behaviors encouraged -anticipatory guidance reviewed: diet, exercise -Mammogram: not due till age 38. -Cervical cancer screening: will attempt to obtain last pap results from [facility] in [place] -Colonoscopy: not due till 38 -Dexa Scan: [...] Encounters Date Type Department Care Team Description 08/26/2025 Results Follow-Up [address] [address] Emma Posada NP Hemoglobin A1c, CBC auto differential, Lipid Panel, Standard, Additional followed-up results: 3 08/18/2025 10:45 AM EST Office Visit [facility] [place] [address] Emma Posada NP Encounter for annual physical exam (Primary Dx); Other iron deficiency anemia; Prediabetes; Class 1 obesity due to excess calories without serious comorbidity with body mass index (BMI) of 32.0 to 32.9 in adult 08/18/2025 Travel 08/17/2025 Telephone [facility] [place] [facility] [place] [address] Emma Posada NP CHARTPREP 08/11/2025 Patient Outreach [facility] [address] [place] [address] Emma Posada NP Pre-visit Planning (SDOH was already completed ) 07/09/2025 3:15 PM EDT Office Visit [facility] [address] [place] [address] Emma Posada NP Class 1 obesity due to excess calories without serious comorbidity with body mass index (BMI) of 32.0 to 32.9 in adult (Primary Dx); Dietary counseling; Exercise counseling; Iron deficiency anemia, unspecified iron deficiency anemia type; Prediabetes; History of uterine fibroid; Routine health maintenance; Encounter for immunization 07/09/2025 Travel 07/08/2025 Telephone [facility] [address] [place] [address] Hammad Abbasi [place] CHART PREP 06/15/2025 Refill [facility] [address] [place] [address] Emma Posada NP Iron deficiency anemia, unspecified iron deficiency anemia type from Last 3 Months Immunizations Immunization Administration [...] have a drink containing alcohol ? 0 08/18/2025 How many drinks containing a lcohol do you have on a typical day when you are drinking? 0 08/18/2025 How often do you have six or more drinks on one occasion? 0 08/18/2025 Depression Answer Date Recorded Patient Health Questionnaire-9 Score 0 08/18/2025 Patient Health Questionnaire-9 Score 0 08/18/2025 Last PHQ-9: Questionnaire Data Not on file 1 10/18/2024 Housing Stability Answer Date Recorded What is [...] Date Recorded Patient Health Questionnaire-2 Score 0 08/18/2025 Internet Access Answer Date Recorded Internet Access Q1 Yes 07/09/2025 Internet Access Q2 Not on file 07/09/2025 Comments No Sex and Gender Information Value Date Recorded Sex Assigned at Female 05/21/2023 11:06 AM EDT Legal Sex Female 11:05 AM EDT Gender Identity Female 05/21/2023 11:06 AM EDT Sexual Orientation Don't know 05/21/2023 11 :06 AM EDT Last Filed Vital Signs Vital Sign Reading Time Taken Comments Blood Pressure 120/80 08/18/2025 11:19 AM EST Pulse 65 08/18/2025 11:19 AM EST Temperature 36.7 C (98.1 F) 08/18/2025 11:19 AM EST Respiratory Rate 20 08/18/2025 11:19 AM EST Oxygen Saturation 99% 08/18/2025 11:19 AM EST Inhaled Oxygen Concentration - - Weight 92.7 kg (204 lb 6.4 oz) 08/18/2025 11:19 AM EST Height 170.2 cm (5' 7 ) 08/18/2025 11:19 AM EST Body Mass Index 32.01 08/18/2025 11:19 AM EST Plan of Treatment Upcoming Encounters Date Type Department Care Team (Late st Contact Info) Description 09/17/2025 11:30 AM EST Office Visit [facility] [address] [place] [address] Emma Posada, DBA [address] [place] [address] 11/05/2025 3:00 PM EST Nutrition [facility] [address] [place] [address] Michelle Hyde, RD [address] [place] [address] 11/11/2025 2:30 PM EST Office Visit [facility] [address] [place], [place] [phone] Sera Graff, OD [address] [place] [address] Health Maintenance Due Date Last Done Comments Family Planning (PISQ) 01/09/2003 HPV Vaccines (1 - 3-dose series) 01/09/2003 Hepatitis B Vaccines (1 of 3 - 19+ 3-dose series) 01/09/2007 Pap Smear 01/09/2009 Cervical Cancer Screening 01/09/2018 HPV/Cotest 01/09/2018 COVID-19 Vaccine ( - 2024-2 6 season) 2025 Disability Screening 07/09/2026 07/09/2025 SDOH Screening 07/09/2026 07/09/2025 Diabetes: Hemoglobin A1C 07/16/2026 025, 01/31/2024 Alcohol/Substance Use Screening 08/18/2026 08/18/2025 Depression Screening 08/18/2026 08/18/2025, 08/18/2025 Tobacco Screening 08/18/2026 08/18/2025 Lipid Panel 07/16/2030 07/16/2025, 01/31/2024 DTaP/Tdap/Td Vaccines (2 - T d [...] Procedure Name Priority Date/Time Associated Diagnosis Comments US PELVIS TRANSVAGINAL Routine 09/10/2025 1:37 PM EST History of uterine fibroid FERRITIN Routine 07/16/2025 9:27 AM EDT Iron deficiency anemia, unspecified iron deficiency anemia type IRON AND TOTAL IRON BINDING CAPACITY Routine 07/16/2025 9:27 AM EDT Iron deficiency anemia, unspecified iron deficiency anemia type BASIC METABOLIC PANEL Routine 07/16/2025 9:27 AM EDT Class 1 obesity due to excess calories without serious comorbidity with body mass index (BMI) of 32.0 to 32.9 in adult Prediabetes LIPID PANEL, STANDARD Routine 07/16/2025 9:27 AM EDT Class 1 obesity due to excess calories without serious comorbidity with body mass index (BMI) of 32.0 to 32.9 in adult CBC WITH AUTO DIFFERENTIAL Routine 07/16/2025 9:27 AM EDT Iron deficiency anemia, unspecified iron deficiency anemia type HEMOGLOBIN A1C Routine 07/16/2025 9:27 AM EDT Class 1 obesity due to excess calories without serious comorbidity with body mass index (BMI) of 32.0 to 32.9 in adult Prediabetes HEPATITIS C AB W/REFL TO HCV RNA, QN, PCR Routine 01/31/2024 8:57 AM EDT Routine screening for STI (sexually transmitted infection) HIV 1/2 ANTIGEN/ANTIBODY, FOURTH GENERATION W/RFL Routine 01/31/2024 8:57 AM EDT Routine screening for STI (sexually transmitted infection) from Last 3 Months or Most Recently Relevant to Health Maintenance Results * US Pelvis Transvaginal (09/10/2025 1:37 PM EST) Anatomical Region Laterality Modality Pelvis Ultrasound 09/10/2025 1:37 PM EST Narrative 09/10/2025 2:54 PM EST [place] [address] Ultrasound Report Signed Patient: April Vaughan MR#: [id number] 48 : 1990 Acct:[id number] Age/Sex: 35 / F ADM Date: 09/10/25 Loc: HO.US Attending Dr: Emma Posada Ordering Physician: Emma Posada Date of Service: 09/10/25 Procedure(s): US pelvic and transvaginal Accession Number(s): [id number] cc: Emma Posada Reason for Exam: hx of fibroid EXAMINATION: US PELVIS CLINICAL INFORMATION: Uterine fibroids. LMP: No apparent 2024. COMPARISON: January 25, 2024. TECHNIQUE: Ultrasound of the pelvis is performed using both transabdominal and transvaginal transducers along with Doppler. Transvaginal imaging is performed due to inadequate visualization transabdominally. FINDINGS: Uterus: The uterus is anteverted in retroversion flexion and measures 15 x 6 x 7 cm. Volume: 295 cc. The double wall endometrial thickness is 12 mm. There is a 2.8 cm heterogeneous predominantly hypoechoic lesion in the anterior aspect of the body of the myometrium. The cervix is closed with the small nabothian cysts. Adnexa: The ovaries are identified with flow on color Doppler interrogation.. No solid or cystic lesion. No free fluid in the cul-de-sac. Right ovary measures 4 x 2 x 3 cm. Volume: 11 cc. Left ovary measures 3 x 2 x 3 cm. Volume: 4 cc. US/US pelvic and transvaginal IMPRESSION: 2.8 cm uterine fibroid. Slightly larger since prior exam. No ovarian torsion. No gross solid or cystic lesion, ovaries. Electronically signed by: Sanchez Quintana MD 09/10/2025 02:52 PM [facility] [place] Dictated By: Sanchez Cruz MD Signed By: <Electronically signed by Sanchez Stoddard MD in OV> 09/10/25 1452 DD/ 1337 TD/TT: 09/10/25 1423 Glass Silverer: Procedure Note Donotuseinterpreter, Image - 09/10/2025 [place] [address] Ultrasound Report Signed Patient: April VaughanMR#: [id number] 48 : 1990Acct:[id number] Age/Sex: 35 / FADM Date: 09/10/25 Loc: HO.US Attending Dr: Emma Posada Ordering Physician: Emma Posada Date of Service: 09/10/25 Procedure(s): US pelvic and transvaginal Accession Number(s): [id number] cc: Emma Posada Reason for Exam: hx of fibroid EXAMINATION: US PELVIS CLINICAL INFORMATION: Uterine fibroids. LMP: No apparent 2024. COMPARISON: January 25, 2024. TECHNIQUE: Ultrasound of the pelvis is performed using both transabdominal and transvaginal transducers along with Doppler. Transvaginal imaging is performed due to inadequate visualization transabdominally. FINDINGS: Uterus: The uterus is anteverted in retroversion flexion and measures 15 x 6 x 7 cm. Volume: 295 cc. The double wall endometrial thickness is 12 mm. There is a 2.8 cm heterogeneous predominantly hypoechoic lesion in the anterior aspect of the body of the myometrium. The cervix is closed with the small nabothian cysts. Adnexa: The ovaries are identified with flow on color Doppler interrogation.. No solid or cystic lesion. No free fluid in the cul-de-sac. Right ovary measures 4 x 2 x 3 cm. Volume: 11 cc. Left ovary measures 3 x 2 x 3 cm. Volume: 4 cc. US/US pelvic and transvaginal IMPRESSION: 2.8 cm uterine fibroid. Slightly larger since prior exam. No ovarian torsion. No gross solid or cystic lesion, ovaries. Electronically signed by: Sanhcez Quintana MD 09/10/2025 02:52 PM EST Dictated By: Sanchez Cruz MD Signed By: <Electronically signed by Sanchez Stoddard MDin OV> 09/10/25 1452 DD/ 1337 TD/TT: 09/10/25 1423 Glass Silverer: us Emma Appram DBA IMG US PROCEDURES Final Result * (ABNORMAL) CBC auto differential (07/16/2025 9:27 AM EDT) White Blood Count 5.6 4.8 - 10.8 X10*3/uL [facility] Red Blood Count 4.43 4.20 - 5.50 X10*6/uL [facility] Hemoglobin 11.3(L) 12.0 - 16.0 g/dl [facility] Hematocrit 36.4(L) 37.0 - 47.0 % [facility] Mean Corpuscular Volume 82.2 80.0 - 98.0 fL [facility] Mean Corpuscular Hemoglobin 25.5(L) 27.0 - 33.0 pg [facility] Mean Corpuscular HGB Conc 31.0 31.0 - 35.0 g/dl [facility] Red Cell Distribution Width 18.0(H) 11.0 - 16.0 % [facility] Platelet Count 348 160 - 400 X10*3/uL [facility] Mean Platelet Volume 11.9 9.4 - 12.3 fL [facility] Neutrophils Percent Auto 47.2 45 - 73 % [facility] Imm Gran Pct Auto 0.2 0.0 - 0.4 % [facility] Lymphocytes Percent Auto 40.0 20 - 40 % [facility] Monocytes Percent Auto 8.1 2 - 11 % [facility] Eosinophils Percent Auto 4.0 0 - 4 % [facility] Basophils Percent Auto 0.5 0 - 2 % [facility] NRBC Pct Auto 0.0 0.0 - 0.2 /100WBC [facility] Neutrophils Absolute Auto 2.6 2.0 - 8.3 x10*3/uL [facility] Imm Gran Abs Auto 0.01 0.00 - 0.03 X10*3/uL [facility] Lymphocytes Absolute Auto 2.2 1.2 - 4.9 X10*3/uL [facility] Monocytes Absolute Auto 0.5 0.1 - 1.2 X10*3/uL [facility] Eosinophils Absolute Auto 0.2 0.0 - 0.4 X10*3/uL [facility] Basophils Absolute Auto 0.0 0.0 - 0.2 X10*3/uL [facility] NRBC Abs Auto 0.000 0.0 - 0.012 X10*3/uL [facility] Blood Venous blood specimen / Unknown 07/16/2025 9:27 AM EDT 07/16/2025 11:21 AM EDT us Emma Posada DBA LAB BLOOD ORDERABLES Final Resu lt [facility] [address] [place] [phone] * Iron And Total Iron Binding Capacity (07/16/2025 9:27 AM EDT) Iron 78 30 - 160 mcg/dL [facility] Total Iron Binding Capacity 337 228 - 428 mcg/dL [facility] Percent Iron Saturation 23 15 - 50 % [facility] Unsaturated Iron Binding 259 ug/dL [facility] Blood Venous blood specimen / Unknown 07/16/2025 9:27 AM EDT 07/16/2025 11:21 AM EDT us Carter Appram DBA LAB BLOOD ORDERABLES Final Resu lt Performing Organization Address [facility] Co de Phone Number [facility] [address] [place] [phone] * Hemoglobin A1c (07/16/2025 9:27 AM EDT) Hemoglobin A1c 5.8 <6.0 % [facility] Comment:Hemoglobin A1C Refer ence Range Adults: 4.8 - 6.0 % Non diabetic: < 6.0 % Goal: < 7.0 %Additional Action Suggested: > 8.0 %Note: Hemoglobin A1c results are invalid for patients with abnormal amounts of HbF. Blood transfusions may impact the HbA1c concentration in the patient sample. Estimated Average Glucose 120 mg/dL [facility] Comment:eAG = Estimated ave rage glucose which is %A1C expressed asaverage glucose, using the formula of the [id number]-[id number] Glucose study (ADAG), Diabetes Care, Vol.31,#8,Apr. 2007 Blood Venous blood specimen / Unknown 07/16/2025 9:27 AM EDT 07/16/2025 11:21 AM EDT us Carter Appram DBA LAB BLOOD ORDERABLES Final Resu lt Performing Organization Address [facility] Co de Phone Number [facility] [address] [place] [phone] * Ferritin (07/16/2025 9:27 AM EDT) Ferritin 29 10 - 122 ng/mL [facility] Blood Venous blood specimen / Unknown 07/16/2025 9:27 AM EDT 07/16/2025 11:21 AM EDT us Carter Appram DBA LAB BLOOD ORDERABLES Final Resu lt Performing Organization Address [facility] Co de Phone Number [facility] [address] [place] [phone] * (ABNORMAL) Lipid Panel, Standard (07/16/2025 9:27 AM EDT) Triglycerides 48 <150 mg/dL [facility] Comment:Desirable Triglyceri de: less than 150 mg/dLBorderline High Triglyceride 150-199 mg/dLHigh Triglyceride: 200-499 mg/dLVery High Triglyceride: greater than or equal to 5OO mg/dL Cholesterol 220(H) <200 mg/dL [facility] Comment:Desirable Cholestero l: less than 200 mg/dLBorderline High Cholesterol: 200-239 mg/dLHigh Cholesterol: greater than 239 mg/dL LDL Cholesterol Calculated 147(H) <100 mg/dL [facility] Comment:Desirable LDL: less than 100 mg/dLNear Optimal/Above Optimal LDL: 110- 129 mg/dLBorderline High LDL: 130-159 mg/dLHigh LDL: 160-189 mg/dLVery High LDL: greater than or equal to 190 mg/dL HDL Cholesterol 64 >40 mg/dL [facility] Comment:Desirable HDL: great er than 40 mg/dL Note: This HDL assay may give artificially low results in patients with liver disease. Blood Venous blood specimen / Unknown 07/16/2025 9:27 AM EDT 07/16/2025 11:21 AM EDT us Emma Posada DBA LAB BLOOD ORDERABLES Final Resu lt [facility] [address] [place] [phone] * (ABNORMAL) Basic Metabolic Panel (07/16/2025 9:27 AM EDT) Sodium 139 135 - 145 mmol/L [facility] Potassium 4.1 3.3 - 5.1 mmol/L [facility] Chloride 105 96 - 108 mmol/L [facility] Carbon Dioxide 28 22 - 29 mmol/L [facility] Anion Gap 10(L) 12 - 20 [facility] Urea Nitrogen (BUN) 16 9 - 16 mg/dL [facility] Creatinine, Serum 0.77 0.5 - 1.4 mg/dL [facility] Estimated Glomerular Filt Rate >60 [facility] Comment:Chronic Kidney Disea se: Estimated GFR < 60 mL/min/1.27p0Mtnmkw Kidney Disease: Estimated GFR < 15 mL/min/1.73m2 Glucose 96 60 - 115 mg/dL [facility] Calcium 9.3 8.4 - 10.2 mg/dL [facility] Blood Venous blood specimen / Unknown 07/16/2025 9:27 AM EDT 07/16/2025 11:21 AM EDT [facility] LAB BLOOD ORDERABLES Final Resu lt Performing Organization Address [facility]/ZIP Co de Phone Number [facility] [address] [place] [phone] * Hepatitis C Antibody with Reflex to HCV, RNA, Quantitative, Real-Time PCR (01/31/2024 8:57 AM EDT) Hepatitis C Antibody Nonreactive Nonreactive [facility] Comment:Antibodies to HCV no t detected; does not exclude early acuteHCV infection. Blood Venous blood specimen / Unknown 01/31/2024 8:57 AM EDT 01/31/2024 11:28 AM EDT [facility] LAB BLOOD ORDERABLES Final Resu lt Performing Organization Address City/[facility]/ZIP Co de Phone Number [facility] [address] [place] [phone] * HIV-1/2 Antigen and Antibodies, Fourth Generation, with Reflexes (01/31/2024 8:57 AM EDT) HIV AB/AG Nonreactive Nonreactive [facility] Comment:HIV-1 p24 Ag and/or HIV-1/HIV-2 Ab not detected.A test result that is nonreactive does not exclude thepossibility of exposure to or infection with HIV-1 and/orHIV-2. Nonreactive results in this assay for individualswith prior exposure to HIV-1 and/or HIV-2 may be due toantigen and antibody levels that are below the limit ofdetection of this assay.The [employer] Alinity HIV Ag/Ab Combo assay result andsupplemental assay results should be interpreted inconjunction with the patient's clinical presentation,history and other laboratory results. If the results areinconsistent with clinical evidence, additional testing issuggested to confirm the result. Blood Venous blood specimen / Unknown 01/31/2024 8:57 AM EDT 01/31/2024 11:28 AM EDT us Emma Posada NP LAB BLOOD ORDERABLES Final Resu lt [facility] [address] [place] [phone] from Last 3 Months or Most Recently Relevant to Health Maintenance Insurance [facility] C3 Care Teams Motor Vehicle Inspector Relationship Specialty Start Date End Date Emma Posada NP [address] [place] [address] PCP - General Family Medicine 01/29/24
--- OUTSIDE RECORDS SUMMARY | 2025-09-10 18:57 | XMS_ITS | Encounter Summary ---
Author Organization [employer] Address [address] [place] [address] Care Team Providers Care Pie Maker Name Role Phone Emma Posada NP Primary Care Provider [phone] Reason for Visit * Reason Comments Med Change Request Encounter Details Date Type Department Care Team (Late st Contact Info) Description 05/29/2024 Refill [facility] [address] [place] [address] Emma Posada NP [address] [place], [place] [phone] Iron deficiency anemia, unspecified iron deficiency anemia [...] Description 09/17/2025 11:30 AM EST Office Visit [facility] [address] [place] [address] Emma Posada NP [address] [place] [address] 11/05/2025 3:00 PM EST Nutrition [facility] [address] [place] [address] Michelle Hyde, RD [address] [place] [address] 11/11/2025 2:30 PM EST Office Visit [facility] [address] [place] [address] Tarka, Sera, OD [address] [place] [address] documented as of this encounter Visit Diagnoses Diagnosis Iron deficiency anemia, unspecified iron deficiency anemia type documented in this encounter Additional Health Concerns Assessment Noted Time PHQ-9 Depression Total Score: 0 01/29/20 11:08 AM EDT documented as of this encounter Care Teams Pie Maker Relationship Specialty Start Date End Date Emma Posada NP [address] [place] [address] PCP - General Family Medicine 01/29/24 documented as of this encounter
--- OUTSIDE RECORDS SUMMARY | 2025-09-10 18:57 | XMS_ITS | Encounter Summary ---
Author Organization [employer] Address [address] [place] [address] Care Team Providers Care Detective And Intelligence Analyst Name Role Phone Emma Posada NP Primary Care Provider [phone] Encounter Details Date Type Department Care Team (Late st Contact Info) Description 09/15/2024 Telephone [facility] MEDICINE [address] [place] [address] Emma Posada NP [address] [place] [address] Social History Tobacco Use Types Packs/Day Years [...] Description 09/17/2025 11:30 AM EST Office Visit [facility] MEDICINE [address] [place] [address] Emma Posada NP [address] [place] [address] 11/05/2025 3:00 PM EST Nutrition [facility] DIABETES/NUTRITION [address] [place] [address] Michelle Hyde, RD [address] [place] [address] 11/11/2025 2:30 PM EST Office Visit [facility] OPTOMETRY [address] [place] [address] Sera Graff, OD [address] [place] [address] documented as of this encounter Visit Diagnoses Not on filedocumented in this encounter Additional Health Concerns Assessment Noted Time PHQ-9 Depression Total Score: 0 01/29/20 11:08 AM EDT documented as of this encounter Care Teams Detective And Intelligence Analyst Relationship Specialty Start Date End Date Emma Posada NP [address] [place] [address] PCP - General Family Medicine 01/29/24 documented as of this encounter
--- OUTSIDE RECORDS SUMMARY | 2025-09-10 18:57 | XMS_ITS | Encounter Summary ---
Author Organization [employer] Address [address] [place] [address] Care Team Providers Care Hull Sorter Name Role Phone Emma Posada NP Primary Care Provider [phone] Encounter Details Date Type Department Care Team (Late st Contact Info) Description 08/26/2025 Results Follow-Up [facility] MEDICINE [address] [place] [address] Emma Posada NP [address] [place] [address] Hemoglobin A1c, CBC auto differential, Lipid Panel, Standard, Additional followed-up results: 3 Social History Tobacco Use Types Packs/Day Years [...] Description 09/17/2025 11:30 AM EST Office Visit [facility] MEDICINE [address] [place] [address] Emma Posada NP [address] [place] [address] 11/05/2025 3:00 PM EST Nutrition [facility] DIABETES/NUTRITION [address] [place] [address] [place] [address] 11/11/2025 2:30 PM EST Office Visit [facility] OPTOMETRY [address] [place] [address] Sera Graff, AZALEA [address] [place] [address] documented as of this encounter Visit Diagnoses Not on filedocumented in this encounter Additional Health Concerns Assessment Noted Time PHQ-9 Depression Total Score: 0 08/18/20 25 11:21 AM EST documented as of this encounter Care Teams Hull Sorter Relationship Specialty Start Date End Date Emma Posada NP [address] [place] [address] PCP - General Family Medicine 01/29/24 documented as of this encounter
--- OUTSIDE RECORDS SUMMARY | 2025-09-10 18:57 | XMS_ITS | Encounter Summary ---
Author Organization [employer] Address [address] [place] [address] Care Team Providers Care Mint Machine Operator Name Role Phone Emma Posada NP Primary Care Provider [phone] Reason for Visit * Reason Comments Med Change Request Encounter Details Date Type Department Care Team (Late st Contact Info) Description 05/29/2024 Refill [facility] MED & PEDS [address] [place] [address] Emma Posada NP [address] [place], [place] [phone] Iron deficiency anemia, unspecified iron deficiency anemia [...] Description 09/17/2025 11:30 AM EST Office Visit [facility] MEDICINE [address] [place] [address] Emma Posada NP [address] [place] [address] 11/05/2025 3:00 PM EST Nutrition [facility] DIABETES/NUTRITION [address] [place] [address] Michelle Hyde, RD [address] [place] [address] 11/11/2025 2:30 PM EST Office Visit [facility] OPTOMETRY [address] [place] [address] Tarka, Sera, OD [address] [place] [address] documented as of this encounter Visit Diagnoses Diagnosis Iron deficiency anemia, unspecified iron deficiency anemia type documented in this encounter Additional Health Concerns Assessment Noted Time PHQ-9 Depression Total Score: 0 01/29/20 11:08 AM EDT documented as of this encounter Care Teams Mint Machine Operator Relationship Specialty Start Date End Date Emma Posada NP [address] [place] [address] PCP - General Family Medicine 01/29/24 documented as of this encounter
--- OUTSIDE RECORDS SUMMARY | 2025-09-10 18:57 | XMS_ITS | Encounter Summary ---
Author Organization [employer] Address [address] [facility] [address] [place] [address] Care Team Providers Care Tow Picker Name Role Phone Emma Posada NP Primary Care Provider [phone] Reason for Visit * Reason Onset Date Comments Med Refill 10/20/2024 Encounter Details Date Type Department Care Team (Late st Contact Info) Description 10/20/2024 Telephone [facility] MEDICINE [address] [place] [address] Emma Posada NP [address] [place], [place] [phone] Med Refill Social History Tobacco Use Types [...] MG/0.5ML solution auto-injector To be sent to: [facility] documented in this encounter Plan of Treatment Upcoming Encounters Date Type Department Care Team (Late st Contact Info) Description 09/17/2025 11:30 AM EST Office Visit [facility] MEDICINE [address] [place] [address] Emma Posada NP [address] [place] [address] 11/05/2025 3:00 PM EST Nutrition [facility] DIABETES/NUTRITION [address] [place] [address] [place] [address] 11/11/2025 2:30 PM EST Office Visit [facility] OPTOMETRY [address] [place] [address] Sera Graff, OD [address] [place] [address] documented as of this encounter Visit Diagnoses Not on filedocumented in this encounter Additional Health Concerns Assessment Noted Time PHQ-9 Depression Total Score: 0 01/29/20 11:08 AM EDT documented as of this encounter Care Teams Tow Picker Relationship Specialty Start Date End Date Emma Posada NP [address] [place] [address] PCP - General Family Medicine 01/29/24 documented as of this encounter
--- OUTSIDE RECORDS SUMMARY | 2025-09-10 18:57 | XMS_ITS | Encounter Summary ---
Author Organization [employer] Address [address] [place] [address] Care Team Providers Care Grip Boss Name Role Phone Emma Posada NP Primary Care Provider [phone] Reason for Visit * Reason Comments Med Refill Encounter Details Date Type Department Care Team (Late st Contact Info) Description 03/30/2025 Refill [facility] MEDICINE [address] [place], [place] [phone] Emma Posada NP [address] [place], [place] [phone] Class 1 obesity due to excess calories [...] Description 09/17/2025 11:30 AM EST Office Visit [facility] MEDICINE [address] [place] [address] Emma Posada, RAFIQ [address] [place] [address] 11/05/2025 3:00 PM EST Nutrition [facility] DIABETES/NUTRITION [address] [place] [address] Michelle Hyde, JOSE [address] [place] [address] 11/11/2025 2:30 PM EST Office Visit [facility] OPTOMETRY [address] [place] [address] Sera Graff, OD [address] [place] [address] documented as of this encounter Visit Diagnoses Diagnosis Class 1 obesity due to excess calories without serious comorbidity with body mass index (BMI) of 32.0 to 32.9 in adult documented in this encounter Additional Health Concerns Assessment Noted Time PHQ-9 Depression Total Score: 0 01/29/20 24 11:08 AM EDT documented as of this encounter Care Teams Grip Boss Relationship Specialty Start Date End Date Emma Posada NP [address] [place] [address] PCP - General Family Medicine 01/29/24 documented as of this encounter
== END 2025-09-10 13:28 | disposition home or self-care (01) ==
LOC: HO.US 13:27
PROVIDERS: PCP Nurse Practitioner; Visit Provider Nurse Practitioner
DX: D25.9 Leiomyoma of uterus, unspecified (principal); Z86.018 Personal history of other benign neoplasm
CPT/HCPCS: 76830; 76856

== ENCOUNTER → 2025-09-10 13:30 | Outpatient (BNV) | payer MEDICAID, SELFPAY | PROVIDERS: PCP Nurse Practitioner; Visit Provider Radiology Diagnostic Radiology | DX: D25.9 Leiomyoma of uterus, unspecified (principal) | CPT/HCPCS: 76830; 76856 ==